=== PATIENT | female | born 1940 | race African-American/Black ===

== ENCOUNTER 2019-05-12 13:18 | Observation (INO) ==
[2019-05-12 14:45] LABS: Basophils # 0.1 10*3/uL (0.0-0.2); Basophils % 0.7 % (0.0-0.8); Eosinophils % 0.1 % (0.00-10.9); Hematocrit 42.4 VOL% (35.7-47.0); Hemoglobin 13.6 GM/DL (12.0-16.0); Immature Granulocytes % 0.3 %; Immature Granulocytes Absolute 0.03 #; Lymphocytes # 1.5 10*3/uL (1.4-4.0); Lymphocytes % 17.4 % (21.3-54.2); Mean Corpuscular HGB Conc 32.1 GM/DL (32-36); Mean Corpuscular Volume 84.5 FL (87-102); Mean Platelet Volume 10.1 FL (9.6-12.0); Monocytes % 13.2 % (1.7-12.7); Neutrophils % 68.3 % (38.7-73.9); Platelet Count 382 T/CUMM (130-400); Red Blood Count 5.02 MC/CUMM (3.8-5.5); Red Cell Distribution Width 13.2 % (9.3-17.3); White Blood Count 8.8 T/CUMM (4-12)
[2019-05-12 14:58] LABS: Alanine Aminotransferase 35 U/L (13-56); Albumin 4.1 G/DL (3.4-5.0); Alkaline Phosphatase 120 U/L (45-117); Aspartate Amino Transferase 26 U/L (0-37); Bilirubin,Total < 0.39 MG/DL (0.2-1.0); Blood Urea Nitrogen 6 MG/DL (7-18); Calcium 9.2 MG/DL (8.5-10.1); Glucose 101 MG/DL (74-106); Osmolality,Calculated 259.7 MOS/KG (273-304); Total Protein 9.6 G/DL (6.4-8.3)
[2019-05-12 15:26] LABS: Apearance,Urine CLEAR (Clear); Bilirubin,Urine Negative (Negative); Blood, Urine Negative (Negative); Glucose,Urine (UA) Negative (Negative); Ketones,Urine 80 mg/dL (Negative); Mucus,Urine Occasional /LPF (Occasional); Nitrite,Urine Negative (Negative); Protein,Urine 30 MG/DL; RBC,Urine 4 /HPF (0-4); Squamous Epithelial Cell,Urine Occasional /HPF (0-10); Urine Color Yellow (Yellow); Urine Specific Gravity 1.026 (1.001-1.035); Urine Urobilinogen < 2.0 EU/DL (0.2-1.0); WBC,Urine 6 /HPF (0-6)
[2019-05-12] MEDS ORDERED: ACETAMINOPHEN 325 MG TABLET PO PRN (16:07)
[2019-05-12] MEDS ORDERED: ONDANSETRON 4 MG/2 ML VIAL IV PRN (16:07)
[2019-05-12] MEDS: SODIUM CHLORIDE 0.9% 1,000 ML IV SCH (17:39)
[2019-05-12] MEDS: SUCRALFATE 1 GM TABLET PO SCH (17:39)
[2019-05-13 05:44] LABS: Basophils # 0.1 10*3/uL (0.0-0.2); Basophils % 0.9 % (0.0-0.8); Eosinophils # 0.1 10*3/uL (0.0-0.87); Eosinophils % 0.6 % (0.00-10.9); Hematocrit 36.9 VOL% (35.7-47.0); Hemoglobin 11.7 GM/DL (12.0-16.0); Immature Granulocytes % 0.2 %; Immature Granulocytes Absolute 0.02 #; Lymphocytes # 1.9 10*3/uL (1.4-4.0); Lymphocytes % 23.3 % (21.3-54.2); Mean Corpuscular HGB Conc 31.7 GM/DL (32-36); Mean Corpuscular Volume 84.6 FL (87-102); Mean Platelet Volume 10.3 FL (9.6-12.0); Monocytes % 17.5 % (1.7-12.7); Neutrophils % 57.5 % (38.7-73.9); Platelet Count 328 T/CUMM (130-400); Red Blood Count 4.36 MC/CUMM (3.8-5.5); Red Cell Distribution Width 13.3 % (9.3-17.3); White Blood Count 8.1 T/CUMM (4-12)
[2019-05-13 06:06] LABS: Eosinophils 3 % (0-10); Hypochromasia 1+; Lymphocytes 25 % (20-55); Platelet Estimate Adequate; Segmented Neutrophils 63 % (50-85); Total Cells Counted 100
[2019-05-13 06:08] LABS: Calcium 8.4 MG/DL (8.5-10.1); Thyroid Stimulating Hormone 2.22 uIU/ml (0.358-3.74)
[2019-05-13] MEDS: SODIUM CHLORIDE 0.9% 1,000 ML IV SCH ×2 (07:00→19:08)
[2019-05-13] MEDS: METOPROLOL SUCCINATE XL 25 MG TABLET PO SCH (10:11)
[2019-05-13] MEDS: SUCRALFATE 1 GM TABLET PO SCH ×3 (10:11→16:30)
[2019-05-13] MEDS: POLYETHYLENE GLYCOL POWDER 17 GM PACK PO SCH (10:12)
[2019-05-13] MEDS: PANTOPRAZOLE 40 MG TABLET PO SCH (10:12)
[2019-05-13] MEDS: ATORVASTATIN 10 MG TABLET PO SCH (10:12)
[2019-05-13] MEDS ORDERED: ZALEPLON 5 MG CAPSULE PO PRN (23:02)
[2019-05-14 05:46] LABS: Basophils # 0.1 10*3/uL (0.0-0.2); Basophils % 0.8 % (0.0-0.8); Eosinophils # 0.1 10*3/uL (0.0-0.87); Eosinophils % 0.9 % (0.00-10.9); Hematocrit 34.4 VOL% (35.7-47.0); Hemoglobin 11.3 GM/DL (12.0-16.0); Immature Granulocytes % 0.3 %; Immature Granulocytes Absolute 0.02 #; Lymphocytes # 1.9 10*3/uL (1.4-4.0); Lymphocytes % 24.5 % (21.3-54.2); Mean Corpuscular HGB Conc 32.8 GM/DL (32-36); Mean Corpuscular Volume 83.3 FL (87-102); Mean Platelet Volume 10.6 FL (9.6-12.0); Monocytes % 14.1 % (1.7-12.7); Neutrophils % 59.4 % (38.7-73.9); Platelet Count 313 T/CUMM (130-400); Red Blood Count 4.13 MC/CUMM (3.8-5.5); Red Cell Distribution Width 13.3 % (9.3-17.3); White Blood Count 7.7 T/CUMM (4-12)
[2019-05-14 06:20] LABS: Calcium 7.9 MG/DL (8.5-10.1); Osmolality,Calculated 265.1 MOS/KG (273-304)
[2019-05-14] MEDS: SUCRALFATE 1 GM TABLET PO SCH ×3 (08:01→16:45)
[2019-05-14] MEDS: SODIUM CHLORIDE 0.9% 1,000 ML IV SCH (08:03)
[2019-05-14] MEDS: LACTATED RINGERS 1,000 ML IV SCH (08:30)
[2019-05-14] MEDS ORDERED: hydrALAZINE 20 MG/1 ML VIAL IV PRN (08:59)
[2019-05-14] MEDS ORDERED: MAGNESIUM SULF RIDER 1 GM in PREMIX 1 EACH IV ONE (09:00)
[2019-05-14] MEDS ORDERED: LIDOCAINE 1% 5 ML VIAL ONE (09:00)
[2019-05-14] MEDS ORDERED: PROPOFOL 200 MG/20 ML VIAL IV ONE (09:00)
[2019-05-14] MEDS ORDERED: PANTOPRAZOLE 40 MG TABLET PO ONE (11:00)
[2019-05-14] MEDS: POLYETHYLENE GLYCOL POWDER 17 GM PACK PO SCH (11:06)
[2019-05-14] MEDS: PANTOPRAZOLE 40 MG TABLET PO SCH ×3 (11:07→21:04)
[2019-05-14] MEDS: METOPROLOL SUCCINATE XL 25 MG TABLET PO SCH ×2 (11:07→21:04)
[2019-05-14] MEDS: ATORVASTATIN 10 MG TABLET PO SCH (11:07)
[2019-05-15] MEDS: SODIUM CHLORIDE 0.9% 1,000 ML IV SCH ×2 (01:15→11:00)
[2019-05-15] MEDS: SUCRALFATE 1 GM TABLET PO SCH ×2 (07:50→12:46)
[2019-05-15] MEDS: LACTATED RINGERS 1,000 ML IV SCH (09:30)
[2019-05-15] MEDS: POLYETHYLENE GLYCOL POWDER 17 GM PACK PO SCH (09:39)
[2019-05-15] MEDS: PANTOPRAZOLE 40 MG TABLET PO SCH (09:39)
[2019-05-15] MEDS: METOPROLOL SUCCINATE XL 25 MG TABLET PO SCH (09:39)
[2019-05-15] MEDS: ATORVASTATIN 10 MG TABLET PO SCH (09:39)
[2019-05-15 13:19] VITALS: BP 142/84
== END 2019-05-15 17:16 | disposition home health service (06) ==
LOC: N.ED 13:18 → N.5E 13:18 → SUATTDRO 16:01 → N.5E 17:03
PROVIDERS: ADMIT Internal Medicine Nephrology; ATTEND Internal Medicine